=== PATIENT | female | born 1980 ===

== ENCOUNTER 2017-07-12 16:53 | Emergency (ER) | payer OTHER ==
[2017-07-12 16:54] VITALS: BMI 24.7
[2017-07-12 17:10] VITALS: BP 135/86; PULSE 79; RESP 18; TEMP 98.6; O2SAT 100
--- NOTE | 2017-07-12 18:07 | C.PDOC ---
History Of Present Illness 36 yr old female, empirically diagnosed with influenza and treated with tamiflu recently, presents to the ER with complaints of left periorbital sensitivity with left temporal headache gradually developing for 1 day.Patient also reports of some redness to the left eye yesterday. Admits to taking ibuprofen few hours [employer] and reports significant improvement. Currently, patient reports she is asymptomatic, denies fever, vision changes, nausea, vomiting, worse headache of life, dizziness or focal deficits. Time Seen by Provider: 07/12/17 17:31 Chief Complaint (Nursing): Headache History Per: Patient History/Exam Limitations: no limitations Onset/Duration Of Symptoms: Gradual (1 day) Past Medical History Reviewed: Historical Data, Nursing Documentation, Vital Signs Vital Signs: Last Vital Signs Temp 98.6 F 07/12/17 17:06 Pulse 79 07/12/17 17:06 Resp 18 07/12/17 17:06 BP 135/86 07/12/17 17:06 Pulse Ox 100 07/12/17 18:09 Surgical History: Cholecystectomy (2009), Tonsillectomy Family History: States: No Known Family Hx - Social History Hx Alcohol Use: No Hx Substance Use: No - Immunization History Hx Tetanus Toxoid Vaccination: No Hx Influenza Vaccination: No Hx Pneumococcal Vaccination: No Review Of Systems Except As Marked, All Systems Reviewed And Found Negative. Constitutional: Negative for: Fever Eyes: Positive for: Redness (left eye redness). Negative for: Vision Change Gastrointestinal: Negative for: Nausea, Vomiting Neurological: Positive for: Headache (left temporal headache, none right now, not worse headache of life). Negative for: Weakness, Dizziness Physical Exam - Physical Exam Appears: Well, Non-toxic, No Acute Distress Skin: Warm, Dry, No Rash Head: Normacephalic Eye(s): bilateral: PERRL Ear(s): Bilateral: Normal Nose: No Flaring, Discharge (B/L congestion with scant clear rhinorrhea), Other (mild tenderness over Left paranasal and frontal area, no edema, no erythema.) Oral Mucosa: Moist, No Drooling Tongue: Normal Appearing Lips: Normal Appearing Throat: No Erythema, No Drooling Neck: Trachea Midline, Supple Cardiovascular: Rhythm Regular, No Murmur, No JVD Respiratory: No Decreased Breath Sounds, No Rales, No Rhonchi, No Stridor, No Wheezing Gastrointestinal/Abdominal: Soft, No Tenderness, No Distention, No Guarding Back: No CVA Tenderness Extremity: Normal ROM, No Pedal Edema, No Swelling Neurological/Psych: Oriented x3, Normal Speech ED Course And Treatment O2 Sat by Pulse Oximetry: 100 (RA) Pulse Ox Interpretation: Normal - CT Scan/US CT - Head Other Rad Studies (CT/US): Read By Radiologist, Radiology Report Reviewed CT/US Interpretation: IMPRESSION: No acute intracranial pathology identified. Mucosal thickening of ethmoid air cells, sphenoid sinuses, and left maxillary sinus. Correlate clinically for sinusitis. Progress Note: On re-eval, pt is awake, alert, not in any apparent distress. Fever improved, hemodynamicaly stable. non-toxic. Tolerate PO well in ED. PulseOx 100% RA. Neck: SUpple, (-) JVD, (-) meningeal sign. ENT: mild left maxilary tenderness, no edema, no erythema. uvula m idline, no edema. Lungs: CTA B/L, BS equal B/L. ABd: benign. Neurologicaly intact. CT head results review c/w sinusitis. Pt advised and ref. to F/U with PMD, ENT in 1-2 days for re-eavl. return to ED at any time if any worsening or new changes. Medical Decision Making Medical Decision Making: PLAN: * CT - Head Disposition Counseled Patient/Family Regarding: Studies Performed, Diagnosis, Need For Followup, Rx Given - Disposition Referrals: [facility] [Outside] Disposition: HOME/ ROUTINE Disposition Time: 19:14 Condition: STABLE Additional Instructions: ENCOURAGE FLUIDS TAKE MEDICATION PRESCRIBED FOLLOW UP WITH PMD, ENT IN 2-3 DAYS FOR RE-EVALUATION. RETURN TO ED IF ANY WORSENING OR NEW CHANGES. 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 - Scribe Statement The provider has reviewed the documentation as recorded by the Scribe Catherine Persaud All medical record entries made by the Scribe were at my direction and personally dictated by me. I have reviewed the chart and agree that the record accurately reflects my personal performance of the history, physical exam, medical decision making, and the department course for this patient. I have also personally directed, reviewed, and agree with the discharge instructions and disposition.
--- NOTE | 2017-07-12 18:56 | CT ---
PROCEDURE: CT HEAD WITHOUT CONTRAST. HISTORY: HEADACHE COMPARISON: None available. TECHNIQUE: Axial computed tomography images were obtained through the head/brain without intravenous contrast. Radiation dose: Total exam DLP = 863.04 mGy-cm. This CT exam was performed using one or more of the following dose reduction techniques: Automated exposure control, adjustment of the mA and/or kV according to patient size, and/or use of iterative reconstruction technique. FINDINGS: HEMORRHAGE: No intracranial hemorrhage. BRAIN: No mass effect or edema. The amaya-white matter differentiation appears intact. VENTRICLES: No hydrocephalus. CALVARIUM: Unremarkable. PARANASAL SINUSES: Mucosal thickening of the ethmoid air cells, sphenoid sinuses, and left maxillary sinus. MASTOID AIR CELLS: Unremarkable as visualized. No inflammatory changes. OTHER FINDINGS: None. IMPRESSION: No acute intracranial pathology identified. Mucosal thickening of ethmoid air cells, sphenoid sinuses, and left maxillary sinus. Correlate clinically for sinusitis.
== END 2017-07-12 19:28 | disposition home or self-care (01) ==
LOC: C.ER 16:53
DX: J32.9 Chronic sinusitis, unspecified (principal)

== ENCOUNTER 2017-10-27 07:27 | Day surgery (SDC) | payer OTHER ==
[2017-10-19 10:18] VITALS: BMI 26.9
[2017-10-27] MEDS ORDERED: Lidocaine 4% (Laryng-O-Jet) Kit MM ONE (08:01)
[2017-10-27] MEDS ORDERED: Propofol 10 mg/ml Inj (20 ML) ONE (10:12)
[2017-10-27] MEDS ORDERED: Midazolam 2 MG/2 ML VIAL ONE (10:12)
--- NOTE | 2017-10-27 14:30 | CARD ---
APPROVED REPORT EXAM: Two-dimensional and M-mode echocardiogram with Doppler and color Doppler. INDICATION CVA/TIA Paradoxical Embolism/ Criptogenic stroke Echo Enhancing Agent Indication: Rule Out Septal Defect Agent/Amount Used: Agitated Saline Reason For Test : Rule out cardiac source of emboli. PROCEDURE After obtaining informed consent, patient underwent transesophageal echo in the [employer]. Type of Sedation : Conscious Sedation Sedation was provided by anesthesiologist. Sedation was achieved with intravenously. Transesophageal probe was inserted and advanced into esophagus without difficulty. Echo enhancement indication: R/O Septal defect. Echo enhancement agent administered: Agitated Saline The ZI was performed without complications. Throughout the procedure, the blood pressure, pulse oximetry, cardiac rhythm, and rate were monitored. The patient tolerated the procedure without adverse effects. Recovery from conscious sedation was uneventful and vital signs were stable. LEFT VENTRICLE The left ventricle is normal size. There is normal left ventricular wall thickness. The left ventricular function is normal. The left ventricular ejection fraction is within the normal range. The Ejection Fraction is 60-65%. There is normal LV segmental wall motion. The left ventricular diastolic function is normal. No left ventricle thrombus noted on this study. There is no ventricular septal defect visualized. There is no left ventricular aneurysm. There is no mass noted in the left ventricle. RIGHT VENTRICLE The right ventricle is normal size. There is normal right ventricular wall thickness. The right ventricular systolic function is normal. ATRIA The left atrium size is normal. The right atrium size is normal. The interatrial septum is intact with no evidence for an atrial septal defect. AORTIC VALVE The aortic valve is normal in structure. No aortic regurgitation is present. There is no aortic valvular stenosis. There is no aortic valvular vegetation. MITRAL VALVE The mitral valve is normal in structure. There is no evidence of mitral valve prolapse. There is no mitral valve stenosis. Mitral regurgitation is mild. TRICUSPID VALVE The tricuspid valve is normal in structure. There is mild tricuspid regurgitation. There is no tricuspid valve prolapse or vegetation. There is no tricuspid valve stenosis. PULMONIC VALVE The pulmonary valve is normal in structure. There is no pulmonic valvular regurgitation. There is no pulmonic valvular stenosis. GREAT VESSELS The aortic root is normal in size. The ascending aorta is normal in size. The pulmonary artery is normal. The IVC is normal in size and collapses >50% with inspiration. PERICARDIAL EFFUSION There is no pericardial effusion. There is no pleural effusion. <Conclusion> The left ventricular function is normal. The left ventricular ejection fraction is within the normal range. The Ejection Fraction is 60-65%. Mitral regurgitation is mild. There is mild tricuspid regurgitation.
== END 2017-10-27 12:50 | disposition home or self-care (01) ==
LOC: C.CATHLAB 07:27
PROVIDERS: ATTEND Internal Medicine Interventional Cardiology
DX: I34.0 Nonrheumatic mitral (valve) insufficiency (principal); I74.9 Embolism and thrombosis of unspecified artery
CPT/HCPCS: 93312; J2250; J2704